=== PATIENT | female | born 1985 | race Caucasian/White ===

== ENCOUNTER 2016-12-08 14:30 | Emergency (ER) | payer BC ==
[2016-12-08] MEDS ORDERED: SODIUM CHLORIDE 0.9% 1,000 ML IV STA (15:53)
[2016-12-08 16:13] LABS: Basophils # (A) 0.1 k/uL (0-0.2); Basophils % (A) 1 %; CH 30.8; CHCM 34.1; Eosinophils # (A) 0.2 k/uL (0-0.7); Eosinophils % (A) 3 %; HCT 42.9 % (34.0-46.0); HDW 2.18; HGB 13.9 gm/dL (11.4-16.0); Luc # (Auto) 0.06; Luc % (Auto) 1; Lymphocytes # (A) 1.6 k/uL (1.0-4.8); Lymphocytes % (A) 29 %; MCH 29.3 pg (25.0-35.0); MCHC 32.3 g/dL (31.0-37.0); MCV 90.7 fL (80.0-100.0); Mean Platelet Volume 7.8; Monocytes # (A) 0.2 k/uL (0-1.0); Monocytes % (A) 4 %; Neutrophils # (A) 3.5 k/uL (1.3-7.7); Neutrophils % (A) 63 %; RBC 4.73 m/uL (3.80-5.40); RDW 13.2 % (11.5-15.5); WBC 5.7 k/uL (3.8-10.6); WBC (Perox) 5.42
[2016-12-08 16:26] LABS: INR 1.1 (<1.2); Partial Thromboplastin Time 26.4 sec (22.0-30.0); Prothrombin Time 10.9 sec (9.0-12.0)
[2016-12-08 16:28] LABS: ALT 35 U/L (9-52); AST 24 U/L (14-36); Alkaline Phosphatase 68 U/L (38-126); Anion Gap 9 mmol/L; Blood Urea Nitrogen 13 mg/dL (7-17); Calcium 9.6 mg/dL (8.4-10.2); Carbon Dioxide 25 mmol/L (22-30); Chloride 105 mmol/L (98-107); Glucose 89 mg/dL (74-99); Magnesium 2.2 mg/dL (1.6-2.3); Non-African American GFR(MDRD) >60 (>60 ml/min/1.73 sqM); Potassium 4.2 mmol/L (3.5-5.1); Sodium 139 mmol/L (137-145); Total Bilirubin 0.5 mg/dL (0.2-1.3)
[2016-12-08 16:37] LABS: Creatine Kinase 105 U/L (30-135)
--- NOTE | 2016-12-08 16:49 | XR ---
EXAMINATION TYPE: XR chest 2V DATE OF EXAM: 12/08/2016 COMPARISON: NONE HISTORY: Chest pain and shortness of breath TECHNIQUE: Frontal and lateral views of the chest are obtained. FINDINGS: There is no focal air space opacity, pleural effusion, or pneumothorax seen. The cardiac silhouette size is within normal limits. The osseous structures are intact. IMPRESSION: No acute cardiopulmonary process.
[2016-12-08 16:50] LABS: Creatine Kinase MB 1.1 ng/mL (0.0-2.4); Troponin I <0.012 ng/mL (0.000-0.034)
[2016-12-08 17:05] VITALS: RESP 16
[2016-12-08 18:38] VITALS: BP 116/67; PULSE 54; TEMP 97
--- NOTE | 2016-12-08 18:38 | ED ---
Chest Pain HPI - General Chief Complaint: Chest Pain Stated Complaint: Chest Pain Time Seen by Provider: 12/08/16 15:36 Source: patient Mode of arrival: ambulatory Limitations: no limitations - History of Present Illness Initial Comments: Complaining about the chest pain for the last 2 weeks, worse for the last week and admits to chest pain gets worse with deep breaths. She denies any tobacco use denies any alcohol use family history is significant for hypertension in both parents. She denies any headaches or neck stiffness has chest pain has shortness of breath no abdominal pain no frequency urgency dysuria denies any upper or lower extremity weakness - Related Data Home Medications Medication Instructions Recorded Confirmed Calcium Carbonate [Tums] 500 mg PO DAILY PRN 12/08/16 12/08/16 Cetirizine HCl [Zyrtec] 10 mg PO HS 12/08/16 12/08/16 Dextroamphetamine/Amphetamine 5 mg PO DAILY 12/08/16 12/08/16 [Adderall] Dextroamphetamine/Amphetamine 10 mg PO BID 12/08/16 12/08/16 [Adderall] Ibuprofen [Motrin] 400 mg PO Q6HR PRN 12/08/16 12/08/16 L.acidoph,Paracasei, B.lactis 1 cap PO HS 12/08/16 12/08/16 [Probiotic] Multivitamins, Thera [Multivitamin 1 tab PO HS 12/08/16 12/08/16 (formulary)] Sertraline HCl [Zoloft] 100 mg PO HS 12/08/16 12/08/16 Allergies Allergy/AdvReac Type Severity Reaction Status Date / Time fluoxetine [From Prozac] Allergy Rash/Hives Verified 12/08/16 16:15 Review of Systems ROS Statement: Those systems with pertinent positive or pertinent negative responses have been documented in the HPI. ROS Other: All systems not noted in ROS Statement are negative. EKG Findings - EKG Comments: EKG Findings:: EKG is a sinus bradycardia ventricular rate is 55 ID interval is 142 QRS duration is 82 QT/QTc is 422/440 review of this EKG reveals some T-wave inversion in lead [address] elevation or ST depression noticed in the other leads Past Medical History Past Medical History: No Reported History History of Any Multi-Drug Resistant Organisms: None Reported Additional Past Surgical History / Comment(s): eye Past Psychological History: Anxiety, Depression Smoking Status: Former smoker Past Alcohol Use History: None Reported Past Drug Use History: Marijuana General Exam - General Exam Comments Initial Comments: General: The patient is awake and alert, in no distress, and does not appear acutely ill. Skin: Skin is warm and dry and no rashes or lesions are noted. Eye: Pupils are equal, round and reactive to light, extra-ocular movements are intact; there is normal conjunctiva bilaterally. Ears, nose, mouth and throat: There are moist mucous membranes and no oral lesions. Neck: The neck is supple, there is no tenderness or JVD. Cardiovascular: There is a regular rate and rhythm. No murmur, rub or gallop is appreciated. Respiratory: To auscultation bilateral, no wheezing no rhonchi no distress respiratory cervantes noticed Gastrointestinal: Soft, non-distended, non-tender abdomen without masses or organomegaly noted. There is no rebound or guarding present. Bowel sounds are unremarkable. Back: There is no tenderness to palpation in the midline. There is no obvious deformity. Musculoskeletal: Normal ROM, no tenderness, There is no pedal edema. There is no calf tenderness or swelling. No cords were appreciated. Neurological: CN II-XII intact, Cranial nerves III through XII are intact. There are no obvious motor or sensory deficits. Coordination appears grossly intact. Speech is normal. Psychiatric: Cooperative, appropriate mood & affect, normal judgment. Limitations: no limitations Course Vital Signs 12/08/16 12/08/16 14:40 17:04 Temperature 97.6 F Pulse Rate 61 50 L Respiratory 18 16 Rate Blood Pressure 127/82 110/69 O2 Sat by Pulse 100 100 Oximetry Patient was reassessed at 1800, d-dimer is negative, CBC, compressive metabolic panel, troponin, chest x-ray all unremarkable, these labs were discussed with the patient and she is happy to follow up with the garage door service technician as outpatient Disposition Clinical Impression: Chest pain, Pleuritic chest pain Disposition: HOME SELF-CARE Condition: Good Instructions: Chest Pain (ED) Referrals: Mati Grewal MD [Primary Care Provider] - 1-2 days Lidia Hahn MD [STAFF PHYSICIAN] - 1-2 days
== END 2016-12-08 18:48 | disposition home or self-care (01) ==
LOC: EC 14:30
DX: R07.81 Pleurodynia (principal); F32.9 Major depressive disorder, single episode, unspecified; F41.9 Anxiety disorder, unspecified; Z82.49 Family history of ischemic heart disease and other diseases of the circulatory system; Z87.891 Personal history of nicotine dependence; Z88.8 Allergy status to other drugs, medicaments and biological substances; Z79.899 Other long term (current) drug therapy
CPT/HCPCS: 36415; 71020; 80053; 82550; 82553; 83735; 84484; 85025; 85379; 85610; 85730; 93005; 96360; 96361; 99285

== ENCOUNTER → 2017-03-08 | Outpatient (CLI) | payer BC ==
--- NOTE | 2017-03-08 15:12 | MR ---
EXAMINATION TYPE: MR cervical spine wo con DATE OF EXAM: 03/08/2017 COMPARISON: NONE HISTORY: Neck pain arm pain TECHNIQUE: Multiplanar, multisequence images of the cervical spine were acquired. C2-C3: No evidence for degenerative disc disease. No disc bulge/herniation or protrusion. No Canal stenosis. Foramina are patent bilaterally. C3-C4: No evidence for degenerative disc disease. No disc bulge/herniation or protrusion. No Canal stenosis. Foramina are patent bilaterally. C4-C5: Some hypertrophic change present, endplate disc complex is causes mild bilateral foraminal enc roachment. No significant spinal stenosis or evident disc herniation. C5-C6: Mild posterior disc bulge causes only slight anterior mass effect on the thecal sac, lateral e xtension of endplate disc complex causes bilateral foraminal encroachment. No significant central jl nosis. C6-C7: Lateral extension of endplate disc complex causes bilateral foraminal encroachment. No signifi cant central stenosis. C7-T1: No evidence for degenerative disc disease. No disc bulge/herniation or protrusion. No Canal stenosis. Foramina are patent bilaterally. Cervical segments are intact. There is normal alignment. Cervical spinal cord is of normal signal. Craniovertebral junction relationships are within normal limits. Mild loss of disc signal compatibl e with disc desiccation may be present at the intervertebral levels. IMPRESSION: Mild degenerative disc disease, foraminal encroachment as described.
== END | disposition home or self-care (01) ==
LOC: RADMRIMAIN 07:42
PROVIDERS: ATTEND Family Medicine
DX: M50.10 Cervical disc disorder with radiculopathy, unspecified cervical region (principal)
CPT/HCPCS: 72141

== ENCOUNTER 2017-03-13 10:52 | Day surgery (SDC) | payer BC ==
[2017-03-12 22:57] VITALS: BMI 21.1
[2017-03-13] MEDS ORDERED: SODIUM CHLORIDE 0.9% 500 ML IV ONE (11:32)
[2017-03-13] MEDS ORDERED: MIDAZOLAM 2 MG/2 ML VIAL ONE ×2 (11:57→12:48)
[2017-03-13] MEDS ORDERED: fentaNYL (PF) 50 MCG/ML 2 ML AMP ONE (11:57)
[2017-03-13] MEDS ORDERED: BENZOCAINE SPRAY 1 CAN MUCOUS MEM ONE ×2 (12:16→12:30)
[2017-03-13] MEDS: MIDAZOLAM 2 MG/2 ML VIAL IV ONE ×4 (12:39→12:50)
[2017-03-13] MEDS: fentaNYL (PF) 50 MCG/ML 2 ML AMP IV ONE ×2 (12:44→12:50)
--- NOTE | 2017-03-13 13:27 | ECHOT ---
TRANSESOPHAGEAL ECHOCARDIOGRAM DATE OF SERVICE: 03/13/2017 PERFORMING PHYSICIAN: Cheng Alvarez MD, rv service technician. INDICATION: This is a pleasant 31-year-old female patient who sees Dr. Moraima Tellez in the office as an outpatient who underwent an echocardiogram recently and that revealed possible supracristal VSD. For that reason, transesophageal echocardiogram was scheduled. COMPLICATION: None. LEVEL OF SEDATION: Moderate with sedation length of 24 minutes and use of 5 mg of Versed and 50 mcg of fentanyl in divided doses. PROCEDURE DESCRIPTION: After obtaining an informed consent, explaining the procedure, benefits, risks, complications and alternatives, the patient was brought to the transesophageal echocardiogram suite. A pulse oximetry and heart rate monitors were attached to the patient prior to the procedure. The patient's throat was sprayed using lidocaine locally. Following that, the patient was turned into left lateral position. A bite guard was placed and the patient was then sedated with the above doses of Versed and fentanyl in divided doses. Following that, the transesophageal echocardiogram probe was advanced through the bite guard into the mid esophagus where 2-D echocardiogram images as well as color Doppler images of various cardiac structures were obtained. We evaluated the interatrial septum using 2-D echocardiogram, color Doppler, and contrast study. The procedure was completed. There were no complications. FINDINGS: The left ventricular dimension and systolic function appeared to be within normal limits. The ejection fraction appeared to be in the range of 60% to 65% with a normal wall motion. The right ventricle is of normal size and function. The left atrium and right atrium dimension appeared to be within normal limits. The left atrial appendage appeared to be free from any thrombus. The interatrial septum appeared to be intact. Aortic valve is trileaflet valve without stenosis or regurgitation. The mitral valve seems to be normal with trace MR. Normal tricuspid valve and pulmonic valve. The interventricular septum appeared to be intact without any evidence of ventricular septal defect. CONCLUSION: 1. Normal left ventricular dimension and systolic function. 2. Normal right ventricular dimension and systolic function. 3. Normal cardiac chamber sizes. 4. Intact interventricular septum. 5. Intact interatrial septum. 6. Normal left atrial appendage. 7. Overall normal intracardiac valves. 8. Normal aortic root dimension. 9. No evidence of pericardial effusion. MMODL / IJN: [id number] /
[2017-03-13 16:36] VITALS: BP 105/65; PULSE 52; RESP 16; TEMP 98.4
== END 2017-03-13 14:39 | disposition home or self-care (01) ==
LOC: CATHCVL 10:52
PROVIDERS: ATTEND Internal Medicine Interventional Cardiology
DX: R07.89 Other chest pain (principal); R06.02 Shortness of breath; F90.0 Attention-deficit hyperactivity disorder, predominantly inattentive type; F41.9 Anxiety disorder, unspecified; F32.9 Major depressive disorder, single episode, unspecified; Z79.899 Other long term (current) drug therapy; Z88.8 Allergy status to other drugs, medicaments and biological substances; Z87.891 Personal history of nicotine dependence
CPT/HCPCS: 93312; 93320; 93325; 81025; J2250; J3010

== ENCOUNTER → 2018-03-30 | Outpatient (CLI) | payer BC ==
[2018-03-31 08:46] VITALS: BMI 21.6
== END | disposition home or self-care (01) ==
LOC: LABWHC1 08:46
PROVIDERS: ATTEND Family Medicine
DX: K90.0 Celiac disease (principal)
CPT/HCPCS: 97802

== ENCOUNTER → 2020-12-18 | Outpatient (CLI) | payer BC ==
[2020-12-18 19:52] LABS: HCT 40.7 % (37.2-46.3); HGB 13.4 g/dL (12.0-15.0); MCH 29.4 pg (27.0-32.0); MCHC 32.9 g/dL (32.0-37.0); MCV 89.3 fL (80.0-97.0); Mean Platelet Volume 10.7 fL (9.5-12.2); Platelet Count 206 X 10*3/uL (140-440); RBC 4.56 X 10*6/uL (4.10-5.20); RDW 12.5 % (11.5-14.5); WBC 5.48 X 10*3/uL (4.50-10.00)
[2020-12-19 13:49] LABS: Albumin 4.7 g/dL (3.8-4.9); Albumin/Globulin Ratio 2.42 (1.60-3.17); Anion Gap 15.7 mmol/L (4.00-12.00); BUN/Creat Ratio 7.97 Ratio (12.00-20.00); Blood Urea Nitrogen 6.6 mg/dL (9.0-27.0); Calcium 9.4 mg/dL (8.7-10.3); Carbon Dioxide 21.8 mmol/L (21.6-31.8); Globulin 1.9 g/dL (1.6-3.3); Non-African American GFR(CKD) 90.6 (60.0-200.0); Potassium 4.4 mmol/L (3.5-5.5); Prolactin 7.2 ng/mL (2.800-29.200); T4, Free (Free Thyroxine) 1.11 ng/dL (0.800-1.800); Total Bilirubin 0.2 mg/dL (0.30-1.20); Total Protein 6.6 g/dL (6.2-8.2)
[2020-12-20 08:39] LABS: Vit B1(Thiamine) 51 ug/L (38-122)
== END | disposition home or self-care (01) ==
LOC: LABWHC1 13:00
PROVIDERS: ATTEND Internal Medicine Endocrinology, Diabetes & Metabolism
DX: R53.83 Other fatigue (principal); K90.0 Celiac disease
CPT/HCPCS: 36415; 80053; 82024; 82306; 82533; 82607; 84146; 84425; 84439; 84443; 84480; 84591; 85027; 86376

== ENCOUNTER → 2021-06-21 | Outpatient (CLI) | payer BC | END | disposition home or self-care (01) | LOC: LABWHC1 15:29 | PROVIDERS: ATTEND Family Medicine | DX: Z11.1 Encounter for screening for respiratory tuberculosis (principal) | CPT/HCPCS: 36415; 86480 ==